=== PATIENT | male | born 1985 | race Caucasian/White ===

== ENCOUNTER 2024-08-05 11:33 | Emergency (ER) | payer OTHER ==
[2024-08-05] MEDS ORDERED: Naloxone 0.4 MG/ML SDV IVPUSH PRN (12:16)
[2024-08-05] MEDS: HYDROmorphone 1 MG/ML Syringe IM ONE (12:20)
[2024-08-05] MEDS: Lidocaine 1% with EPINEPHrine 1:100,000 20 ML MDV INJECT ONE (14:34)
[2024-08-05] MEDS ORDERED: Bacitracin Oint 1 GM U/D Packet ONE (14:42)
[2024-08-05] MEDS: Bacitracin Oint 1 GM U/D Packet TOP ONE (14:48)
== END 2024-08-05 15:19 | disposition home or self-care (01) ==
LOC: JP.ED 11:33
DX: S62.634A Displaced fracture of distal phalanx of right ring finger, initial encounter for closed fracture (principal); S61.214A Laceration without foreign body of right ring finger without damage to nail, initial encounter; W23.1XXA Caught, crushed, jammed, or pinched between stationary objects, initial encounter; Y99.0 Civilian activity done for income or pay
CPT/HCPCS: 12001; 73130-26-RT; 73130-RT; 96372; 99283; J1171